=== PATIENT | male | born 1955 | race Caucasian/White ===

== ENCOUNTER → 2016-06-16 | Outpatient (CLI) | payer OTHER ==
[~2016-06-16] MED LIST: ALBU17IN INH; LEVA500T PO; MECL-68 PO; PRED10PA PO; TIOT18INH INH
== END ==
LOC: M RAD 08:41
PROVIDERS: ATTEND Family Medicine
DX: R93.8 Abnormal findings on diagnostic imaging of other specified body structures (principal); Z53.9 Procedure and treatment not carried out, unspecified reason

== ENCOUNTER → 2016-07-07 | Outpatient (CLI) | payer SELFPAY ==
[~2016-07-07] MED LIST changes: +ISOVUE-370 76% 100ML VIAL (Q9967) As Ordered ONE; +SPIR1CAP INH; +[UNRECOGNIZED DRUG - REMARK]
--- NOTE | 2016-07-08 03:25 | REP ---
Clinical: Evaluate suspicious lesion. Technique: Axial contrast enhanced images from the thoracic inlet to the upper abdomen using 100 ml Isovue 370 intravenous contrast material with coronal and sagittal re-formations. Comparison: 06/09/2016. Findings: Mild emphysematous changes are suggested along with chronic plate-like scarring and fibrotic changes in the lingula which remain stable. Mild perihilar bronchiectasis is appreciated. The presumed focal area of bronchiectasis in the superior segment right lower lobe with fluid level remains unchanged and no further similar findings are identified throughout the bilateral lung moncada. No pleural effusion. No pneumothorax. No significant axillary, hilar, or mediastinal adenopathy is appreciated. Heart/pericardium and thoracic aorta as well as pulmonary vasculature appear relatively normal for age. No cardiomegaly or pericardial effusion is appreciated. Mild atherosclerotic changes noted. Musculoskeletal structures without focal osseous abnormality. Limited evaluation of the upper abdomen demonstrates stable hepatic hypodensities most compatible with small cysts as well as normal bilateral adrenal glands. Impression: Focal area of bronchiectasis in the superior segment right lower lobe with small fluid level is unchanged and currently measures approximately 2.5 by 1.3 cm maximal transverse diameter. Differential diagnosis again may less likely include neoplastic change and small chronic pulmonary cyst. Mild chronic emphysematous changes and subtle perihilar bronchiectasis is also appreciated along with chronic plate-like scarring at the lingula. No acute consolidation, further mass lesion or adenopathy. Signed by Harpreet Pollock MD 07/08/2016 03:16 A
== END ==
LOC: M RAD 12:55
PROVIDERS: ATTEND Family Medicine
DX: R93.8 Abnormal findings on diagnostic imaging of other specified body structures (principal)
CPT/HCPCS: 71260; Q9967

== ENCOUNTER 2016-07-11 21:44 | Inpatient (IN) | payer SELFPAY ==
[~2016-07-11] VITALS: Ht 172.7 cm; Wt 118.3 kg
[~2016-07-11 21:44] MED LIST changes: -ISOVUE-370 76% 100ML VIAL (Q9967) As Ordered ONE; -SPIR1CAP INH; -[UNRECOGNIZED DRUG - REMARK]
[2016-07-11] MEDS ORDERED: ALBUTEROL SULFATE 2.5 MG/0.5 ML INH NEB SOLN As Ordered ONE (23:20)
[2016-07-11] MEDS ORDERED: IPRATROPIUM 0.5MG/ALBUTEROL 2.5MG INH SOL UD 3ML (DUONEB)(J7620) As Ordered ONE (23:20)
[2016-07-11] MEDS ORDERED: methylPREDNISolone INJ 125 MG/2 ML VIAL (J2930) As Ordered ONE (23:40)
[2016-07-11 23:58] LABS: BASO # 0.2 K/mm3 (0.0-0.2); BASO % 1.9 % (0.0-1.0); EOS # 0.1 K/mm3 (0.0-0.50); EOS % 1.5 % (0.0-3.0); LARGE UNSTAINED CELL # 0.2 K/mm3 (0.0-0.4); LARGE UNSTAINED CELL % 1.9 % (0.0-4.0); LYMPH # 2.3 K/mm3 (1.5-4.5); LYMPH % 27.1 % (24.0-44.0); MEAN CORPUSCULAR HEMOGLOBIN 32.5 pg (27.0-33.0); MEAN CORPUSCULAR HGB CONC 33.4 g/dl (32.0-36.5); MEAN CORPUSCULAR VOLUME 97.4 fl (80.0-96.0); MONO # 0.4 K/mm3 (0.0-0.8); MONO % 5.6 % (0.0-5.0); NEUTROPHILS # 4.9 K/mm3 (1.8-7.7); PLATELET COUNT, AUTOMATED 175 k/mm3 (150-450); RED CELL DISTRIBUTION WIDTH 13.7 % (11.5-14.5)
[2016-07-12 00:19] LABS: ANION GAP 8 MEQ/L (8-16); BLOOD UREA NITROGEN 9 MG/DL (7-18); CALCIUM LEVEL 8.8 MG/DL (8.8-10.2); CARBON DIOXIDE LEVEL 31 MEQ/L (21-32); CHLORIDE LEVEL 101 MEQ/L (98-107); CREATININE FOR GFR 0.78 MG/DL (0.70-1.30); GLOMERULAR FILTRATION RATE > 60.0 (>49); GLUCOSE, FASTING 130 MG/DL (80-110); POTASSIUM SERUM 3.6 MEQ/L (3.5-5.1); SODIUM LEVEL 140 MEQ/L (136-145)
[2016-07-12] MEDS ORDERED: SPIR1CAP INH (02:20)
[2016-07-12] MEDS ORDERED: [UNRECOGNIZED DRUG - REMARK] (02:26)
[2016-07-12] MEDS ORDERED: ONDANSETRON 4 MG TAB (S0181) PO PRN (02:45)
[2016-07-12] MEDS ORDERED: IPRATROPIUM 0.5MG/ALBUTEROL 2.5MG INH SOL UD 3ML (DUONEB)(J7620) NEB PRN (02:45)
[2016-07-12] MEDS ORDERED: PERCOCET 5MG/325MG TAB PO PRN (02:45)
[2016-07-12] MEDS ORDERED: ONDANSETRON 4MG/2ML VIAL (J2405) IV PRN (02:45)
[2016-07-12] MEDS ORDERED: ACETAMINOPHEN TAB 650MG DOSE (2X325MG) PO PRN (02:45)
[2016-07-12] MEDS ORDERED: ZOSYN 3.375 GM VIAL (J2543) As Ordered ONE (02:54)
[2016-07-12] MEDS ORDERED: VANCOMYCIN 1000 MG/20 ML VIAL (J3370) As Ordered ONE (03:23)
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
--- NOTE | 2016-07-12 04:06 | EDDOCDS ---
Physician Documentation [facility] Name: Kevin Sánchez Age: 61 yrs Sex: Male : 1955 Arrival Date: 07/11/2016 Time: 21:44 Bed 8 Private MD: Disposition: 07/12/16 02:04 Hospitalization ordered by Cheyenne Huggins for Inpatient Admission. Preliminary diagnosis are Chronic obstructive pulmonary disease, unspecified, Hypoxemia. - Bed requested for 4 Randle. - Status is Inpatient Admission. js15 - Condition is Stable. - Problem is an acute exacerbation. - Symptoms have improved. Historical: - Allergies: Oxycodone HCl; - Home Meds: 1. Albuterol Inhl as needed - PMHx: COPD; - PSHx: steel plate in right leg; Tonsillectomy; - Social history: Smoking status: Patient uses tobacco products, light tobacco smoker. No barriers to communication noted, The patient speaks fluent Thai. - Family history: Not pertinent. - : The pt / caregiver states he / she is not on anticoagulants. Home medication list is obtained from the patient. - Exposure Risk Screening:: None identified. Vital Signs: 07/11 21:46 BP 136 / 79; Pulse 104; Resp 20; Temp 97.4(O); Pulse Ox 94% on R/A; Weight 117.93 kg / mateo 259.99 lbs (R); Height 5 ft. 8 in. (172.72 cm) (R); Pain 0/10; 23:05 Pulse 102 MON; Pulse Ox 93% ; js15 23:06 BP 131 / 62 (auto/); 23:39 BP 120 / 72 (auto/); 15 23:39 Pulse 102 MON; Pulse Ox 87% ; 15 23:50 Pulse 100 MON; Pulse Ox 90% ; 15 23:51 BP 126 / 72 (auto/); 15 07/12 00:05 Pulse 94 MON; Pulse Ox 94% ; 15 00:06 BP 135 / 78 (auto/); 15 00:20 Pulse 94 MON; Pulse Ox 93% ; 15 00:21 BP 131 / 72 (auto/); 15 00:35 Pulse 90 MON; Pulse Ox 93% ; js15 00:36 BP 144 / 91 (auto/); 15 00:51 BP 143 / 70 (auto/); js15 00:51 Pulse 96 MON; Pulse Ox 92% ; js15 01:51 BP 128 / 74 (auto/); js15 01:51 Pulse 94 MON; Pulse Ox 91% ; js15 02:06 BP 134 / 70 (auto/); js15 02:07 Pulse 92 MON; Pulse Ox 90% ; js15 02:21 Pulse 92 MON; Pulse Ox 94% ; js15 02:21 BP 126 / 73 (auto/); js15 02:35 Pulse 98 MON; Pulse Ox 91% ; js15 02:36 BP 127 / 72 (auto/); js15 02:50 Pulse 104 MON; Pulse Ox 90% ; js15 02:51 BP 126 / 70 (auto/); 15 03:07 BP 116 / 66; Pulse 100 MON; Resp 20; Temp 98.4(TE); Pulse Ox 90% on 3 lpm NC; Pain 0/10;[facility] 07/11 21:46 Body Mass Index 39.53 (117.93 kg, 172.72 cm) mateo MDM: 07/11 23:12 Solu-MEDROL 125 mg IVP once ordered. ke 23:12 -Blood Culture (Adults Only), peripheral from different site, or from device/port/PICC ke etc. if present ordered. 23:12 Supervisor Calibration/Pulse Ox/q 15 min VS ordered. ke 23:12 IV Saline Lock ordered. ke 23:12 Oxygen at 4L/Min NC or Home dosage ordered. ke 23:12 Rhythm Strip to chart ordered. ke 23:12 Albuterol 5 mg Nebulizer once ordered. ke 23:12 Albuterol-Ipratropium 3 ml Inhalation once ordered. ke 23:12 Call Respiratory ordered. ke 23:12 Obtain sample by nasopharyngeal swab ordered. ke 23:13 Call Respiratory complete. ar3 23:13 B-Type Natiuretic Peptide Ordered. EDMS 23:13 Basic Metabolic Profile Ordered. EDMS 23:13 CBC with Diff Ordered. EDMS 23:13 -Influenza A&B Rapid Antigen - Nose Ordered. EDMS 23:13 ECG WITH READING ER PHYS+CARDIAG ordered. EDMS 23:14 Chest, 2 View (pa\E\lat) Ordered. EDMS 23:19 -Blood Culture (Adults Only), peripheral from different site, or from device/port/PICC ar3 etc. if present complete. 23:21 BLOOD CULTURES Ordered. EDMS 07/12 00:23 Financial registration complete. [facility] 01:05 Basic Metabolic Profile Reviewed. mm11 01:05 CBC with Diff Reviewed. mm11 01:05 B-Type Natiuretic Peptide Reviewed. mm11 01:05 -Influenza A&B Rapid Antigen - Nose Reviewed. mm11 01:28 [facility] Payment Agreement was scanned into Ent[employer] and attached to record. [facility] 01:55 BED REQUEST+ADM ordered. EDMS 01:55 Piperacillin-Tazobactam 3.375 grams IVPB once over 30 mins; dilute in 50mL of NS or D5W mm11 ordered. 01:55 vancomycin (loading dose for pt. wt. >= 80kg) 2000 mg IVPB once ordered. mm11 01:56 Albuterol-Ipratropium 1 neb Nebulizer every 20 minutes x3 ordered. mm11 01:56 Call Respiratory ordered. mm11 02:09 Call Respiratory complete. js15 02:36 SPUTUM CULTURE AND GRAM STAIN Ordered. EDMS 02:38 Admission / Observation Status ordered. EDMS 02:39 REGULAR DIET ordered. EDMS Administered Medications: 07/11 23:30 Drug: Albuterol 5 mg [albuterol sulfate 2.5 mg/0.5 mL solution for nebulization (1 mL)] rs5 Route: Nebulizer; 23:30 Drug: Albuterol-Ipratropium 3 ml [ipratropium-albuterol 0.5 mg-3 mg(2.5 mg base)/3 mL rs5 nebulization soln (3 mL)] Route: Inhalation; 23:49 Drug: Solu-MEDROL 125 mg [Solu-Medrol 500 mg intravenous solution (125 mg)] Route: IVP; js15 Site: right antecubital; 07/12 02:12 Drug: Albuterol-Ipratropium 1 neb [ipratropium-albuterol 0.5 mg-3 mg(2.5 mg base)/3 mL rs5 nebulization soln (1 neb)] Route: Nebulizer; 02:19 Drug: Albuterol-Ipratropium 1 neb [ipratropium-albuterol 0.5 mg-3 mg(2.5 mg base)/3 mL rs5 nebulization soln (1 neb)] Route: Nebulizer; 02:20 Drug: Albuterol-Ipratropium 1 neb [ipratropium-albuterol 0.5 mg-3 mg(2.5 mg base)/3 mL rs5 nebulization soln (1 neb)] Route: Nebulizer; 03:06 Drug: Piperacillin-Tazobactam 3.375 grams [piperacillin-tazobactam 3.375 gram js15 intravenous solution] Route: IVPB; Infused Over: 30 mins; Site: right antecubital; 03:36 Follow up: IV Status: Completed infusion; IV Intake: 50ml js15 03:38 Drug: vancomycin (loading dose for pt. wt. >= 80kg) 2000 mg [vancomycin 1,000 mg js15 intravenous injection] Route: IVPB; Site: right antecubital; 04:02 Follow up: IV Status: Infusion continued upon admit js15 Signatures: Dispatcher [employer] EDMS Elisabet Finch RN RN daq Guillermo Jolley, FOOD COUNTER ATTENDANT FOOD COUNTER ATTENDANT Matti Canales, DO mm11 Jasmin Wiseman RN RN rs3 Gabbie Mueller, WASHERY ENGINEER WASHERY ENGINEER ar3 Magda Villasenor [facility] Verenice Way RN RN js15 Frank John RT rs5 The chart was reviewed and I authenticate all verbal orders and agree with the evaluation and treatment provided.Attachments: 01:28 [facility] Payment Agreement [facility] MTDD
--- NOTE | 2016-07-12 04:06 | EDDOCDS ---
Nurse's Notes [facility] Name: Kevin Sánchez Age: 61 yrs Sex: Male : 1955 Arrival Date: 07/11/2016 Time: 21:44 Bed 8 Private MD: Diagnosis: Chronic obstructive pulmonary disease, unspecified;Hypoxemia Presentation: 07/11 21:59 Presenting complaint: Patient states: difficulty breathing today. was not improved with rs3 neb treatment and inhalers. was recently admitted for pneumonia. had chest CT done on Tuesday as outpatient. weakness/headache feeling strange today. Adult Sepsis Screening: The patient does not have new or worsening altered mentation. Patient's respiratory rate is less than 22. Systolic blood pressure is greater than 100. Patient has a qSOFA score of 0- Negative Sepsis Screen. Suicide/Homicide risk assessment- the patient denies having any suicidal and/or homicidal ideations and does not present with any other emotional, behavioral or mental health complaints. Status: Patient is not a ancillary services manager or dependent. Transition of care: patient was not received from another setting of care. 21:59 Acuity: MIREYA Level 3 rs3 21:59 Method Of Arrival: Walkin/Carried/Asstd rs3 Triage Assessment: 22:06 General: Appears in no apparent distress. Pain: Denies pain. Pt Declines HIV testing. rs3 Respiratory: Onset: The symptoms/episode began/occurred gradually. Historical: - Allergies: Oxycodone HCl; - Home Meds: 1. Albuterol Inhl as needed - PMHx: COPD; - PSHx: steel plate in right leg; Tonsillectomy; - Social history: Smoking status: Patient uses tobacco products, light tobacco smoker. No barriers to communication noted, The patient speaks fluent Taiwanese. - Family history: Not pertinent. - : The pt / caregiver states he / she is not on anticoagulants. Home medication list is obtained from the patient. - Exposure Risk Screening:: None identified. Screenin:00 Screening information is obtained from the patient. Fall risk: No risks identified. js15 Assistance ADL's: requires no assistance with activities of daily living. Abuse/DV Screen: The patient / caregiver reports he/she is: not in a situation that causes fear, pain or injury. Nutritional screening: No deficits noted. Advance Directives: There is no active DNR order. home support is adequate. Assessment: 23:00 General: Appears in no apparent distress, comfortable, Behavior is appropriate for age, js15 cooperative. Pain: Denies pain. Neurological: Level of Consciousness is awake, alert, obeys commands, Oriented to person, place, time. Cardiovascular: Capillary refill < 3 seconds Heart tones S1 S2 present Rhythm is sinus tachycardia. Cardiovascular: Chest pain is denied. Respiratory: Airway is patent Respiratory effort is even, unlabored, Respiratory pattern is regular, symmetrical, Breath sounds with wheezes bilaterally. Derm: Skin is pink, warm & dry. 07/12 00:00 Reassessment: Patient appears in no apparent distress at this time. Pt resting on js15 stretcher, respirations even and unlabored; skin pink, warm, dry. 00:57 Reassessment: Patient appears in no apparent distress at this time. Pt resting on js15 stretcher with eyes closed, appears to be sleeping; skin pink, warm, dry; respirations even and unlabored. 02:00 General: Appears to be sleeping. Cardiovascular: Rhythm is regular. Respiratory: Airway js15 is patent Respiratory effort is even, unlabored, Respiratory pattern is regular, symmetrical. Derm: Skin is pink, warm & dry. 03:14 Reassessment: Patient appears in no apparent distress at this time. Patient states js15 feeling better. Patient states symptoms have improved. Pt sitting up on stretcher, watching tv; denies pain; respirations even and unlabored; skin pink, warm, dry. Vital Signs: 07/11 21:46 BP 136 / 79; Pulse 104; Resp 20; Temp 97.4(O); Pulse Ox 94% on R/A; Weight 117.93 kg mateo (R); Height 5 ft. 8 in. (172.72 cm) (R); Pain 0/10; 23:05 Pulse 102 MON; Pulse Ox 93% ; 15 23:06 BP 131 / 62 (auto/); js15 23:39 BP 120 / 72 (auto/); js15 23:39 Pulse 102 MON; Pulse Ox 87% ; js15 23:50 Pulse 100 MON; Pulse Ox 90% ; js15 23:51 BP 126 / 72 (auto/); js15 07/12 00:05 Pulse 94 MON; Pulse Ox 94% ; js15 00:06 BP 135 / 78 (auto/); js15 00:20 Pulse 94 MON; Pulse Ox 93% ; js15 00:21 BP 131 / 72 (auto/); js15 00:35 Pulse 90 MON; Pulse Ox 93% ; js15 00:36 BP 144 / 91 (auto/); js15 00:51 BP 143 / 70 (auto/); js15 00:51 Pulse 96 MON; Pulse Ox 92% ; js15 01:51 BP 128 / 74 (auto/); js15 01:51 Pulse 94 MON; Pulse Ox 91% ; js15 02:06 BP 134 / 70 (auto/); js15 02:07 Pulse 92 MON; Pulse Ox 90% ; js15 02:21 Pulse 92 MON; Pulse Ox 94% ; js15 02:21 BP 126 / 73 (auto/); js15 02:35 Pulse 98 MON; Pulse Ox 91% ; js15 02:36 BP 127 / 72 (auto/); js15 02:50 Pulse 104 MON; Pulse Ox 90% ; js15 02:51 BP 126 / 70 (auto/); js15 03:07 BP 116 / 66; Pulse 100 MON; Resp 20; Temp 98.4(TE); Pulse Ox 90% on 3 lpm NC; Pain 0/10;js15 07/11 21:46 Body Mass Index 39.53 (117.93 kg, 172.72 cm) mateo Vitals: 07/11 21:46 Log In Time: July 11, 2016 at 21:46. mateo ED Course: 21:46 Patient visited by Rossy Bello PCA. mateo 21:46 Patient moved to Waiting mateo 21:47 Patient moved to Pre RCE mateo 22:02 Triage Initiated rs3 22:12 Patient moved to Triage 2 ms18 22:37 Patient moved to 8 kmg1 22:58 [facility] ke 22:58 Patient visited by Guillermo Jolley FNP. ke 22:58 Patient visited by Guillermo Jolley FNP. ke 23:26 Patient moved to Radiology yash 23:26 Patient moved to 8 yash 23:30 Inserted saline lock: 18 gauge in right antecubital area The patient tolerated the js15 procedure well. No procedures done that require assistance. 23:35 Patient visited by Guillermo Jolley FNP. ke 23:36 -Influenza A&B Rapid Antigen - Nose Sent. js15 23:36 B-Type Natiuretic Peptide Sent. js15 23:36 Basic Metabolic Profile Sent. js15 23:36 CBC with Diff Sent. 15 23:37 BLOOD CULTURES Sent. js15 23:37 EKG done. (by ED staff). Reviewed by Guillermo ARAGON. kb5 23:38 Patient visited by Santiago Cotter PCA. kb5 23:55 Matti Leggett DO is Attending Physician. mm11 07/12 00:00 The patient / caregiver is instructed regarding the plan of care and ED course. js15 00:[address] visited [address] Verenice [address] RN. js15 01:28 [facility] Payment Agreement was scanned into [employer] and attached to record. [facility] 01:53 Patient visited by Matti Leggett DO. mm11 02:04 Cheyenne Huggins is Hospitalizing Provider. mm11 Administered Medications: 07/11 23:30 Drug: Albuterol 5 mg [albuterol sulfate 2.5 mg/0.5 mL solution for nebulization (1 mL)] rs5 Route: Nebulizer; 23:30 Drug: Albuterol-Ipratropium 3 ml [ipratropium-albuterol 0.5 mg-3 mg(2.5 mg base)/3 mL rs5 nebulization soln (3 mL)] Route: Inhalation; 23:49 Drug: Solu-MEDROL 125 mg [Solu-Medrol 500 mg intravenous solution (125 mg)] Route: IVP; js15 Site: right antecubital; 07/12 02:12 Drug: Albuterol-Ipratropium 1 neb [ipratropium-albuterol 0.5 mg-3 mg(2.5 mg base)/3 mL rs5 nebulization soln (1 neb)] Route: Nebulizer; 02:19 Drug: Albuterol-Ipratropium 1 neb [ipratropium-albuterol 0.5 mg-3 mg(2.5 mg base)/3 mL rs5 nebulization soln (1 neb)] Route: Nebulizer; 02:20 Drug: Albuterol-Ipratropium 1 neb [ipratropium-albuterol 0.5 mg-3 mg(2.5 mg base)/3 mL rs5 nebulization soln (1 neb)] Route: Nebulizer; 03:06 Drug: Piperacillin-Tazobactam 3.375 grams [piperacillin-tazobactam 3.375 gram js15 intravenous solution] Route: IVPB; Infused Over: 30 mins; Site: right antecubital; 03:36 Follow up: IV Status: Completed infusion; IV Intake: 50ml js15 03:38 Drug: vancomycin (loading dose for pt. wt. >= 80kg) 2000 mg [vancomycin 1,000 mg js15 intravenous injection] Route: IVPB; Site: right antecubital; 04:02 Follow up: IV Status: Infusion continued upon admit js15 Intake: 03:36 IV: 50.00ml; Total: 50.00ml. js15 RT: 07/11 23:28 Initial Med Neb Given as ordered. Respiratory: Respiratory effort is even, unlabored, rs5 Respiratory pattern is regular symmetrical, Breath sounds are diminished bilaterally. Breath sounds with wheezes in left posterior upper lobe and left posterior lower lobe at expiration. 23:29 Respiratory: Reports cough that is productive. rs5 23:38 Respiratory: Breath sounds are diminished bilaterally. Breath sounds with wheezes rs5 bilaterally. 07/12 02:20 Subsequent Med Neb Given as ordered Patient tolerated procedure well without adverse rs5 effect. Respiratory: Breath sounds are diminished bilaterally. Breath sounds with wheezes. Order Results: Lab Order: B-Type Natiuretic Peptide; SPEC'M 07/11/16 23:33 Test: BRAIN NATRIURETIC PEPTIDE; Value: 9.1; Range: <100; Units: PG/ML; Status: F Lab Order: Basic Metabolic Profile; SPEC'M 07/11/16 23:33 Test: GLUCOSE, FASTING; Value: 130; Range: 80-110; Abnormal: Above high normal; Units: MG/DL; Status: F Test: BLOOD UREA NITROGEN; Value: 9; Range: 7-18; Units: MG/DL; Status: F Test: CREATININE FOR GFR; Value: 0.78; Range: 0.70-1.30; Units: MG/DL; Status: F Test: GLOMERULAR FILTRATION RATE; Value: > 60.0; Range: >49; Status: F Test: SODIUM LEVEL; Value: 140; Range: 136-145; Units: MEQ/L; Status: F Test: POTASSIUM SERUM; Value: 3.6; Range: 3.5-5.1; Units: MEQ/L; Status: F Test: CHLORIDE LEVEL; Value: 101; Range: 98-107; Units: MEQ/L; Status: F Test: CARBON DIOXIDE LEVEL; Value: 31; Range: 21-32; Units: MEQ/L; Status: F Test: ANION GAP; Value: 8; Range: 8-16; Units: MEQ/L; Status: F Test: CALCIUM LEVEL; Value: 8.8; Range: 8.8-10.2; Units: MG/DL; Status: F Test Note: ; Units are mL/min/1.73 m2 Chronic Kidney Disease Staging per NKF: Stage I & II GFR >=60 Normal to Mildly Decreased Stage III GFR 30-59 Moderately Decreased Stage IV GFR 15-29 Severely Decreased Stage V GFR <15 Very Little GFR Left ESRD GFR <15 on IRONING PLEATER Lab Order: CBC with Diff; SPEC'M 07/11/16 23:33 Test: WHITE BLOOD COUNT; Value: 8.0; Range: 4.0-10.0; Units: K/mm3; Status: F Test: RED BLOOD COUNT; Value: 5.48; Range: 4.30-6.10; Units: M/mm3; Status: F Test: HEMOGLOBIN; Value: 17.8; Range: 14.0-18.0; Units: g/dl; Status: F Test: HEMATOCRIT; Value: 53.3; Range: 42.0-52.0; Abnormal: Above high normal; Units: %; Status: F Test: MEAN CORPUSCULAR VOLUME; Value: 97.4; Range: 80.0-96.0; Abnormal: Above high normal; Units: fl; Status: F Test: MEAN CORPUSCULAR HEMOGLOBIN; Value: 32.5; Range: 27.0-33.0; Units: pg; Status: F Test: MEAN CORPUSCULAR HGB CONC; Value: 33.4; Range: 32.0-36.5; Units: g/dl; Status: F Test: RED CELL DISTRIBUTION WIDTH; Value: 13.7; Range: 11.5-14.5; Units: %; Status: F Test: PLATELET COUNT, AUTOMATED; Value: 175; Range: 150-450; Units: k/mm3; Status: F Test: NEUTROPHILS %; Value: 62.0; Range: 36.0-66.0; Units: %; Status: F Test: LYMPH %; Value: 27.1; Range: 24.0-44.0; Units: %; Status: F Test: MONO %; Value: 5.6; Range: 0.0-5.0; Abnormal: Above high normal; Units: %; Status: F Test: EOS %; Value: 1.5; Range: 0.0-3.0; Units: %; Status: F Test: BASO %; Value: 1.9; Range: 0.0-1.0; Abnormal: Above high normal; Units: %; Status: F Test: LARGE UNSTAINED CELL %; Value: 1.9; Range: 0.0-4.0; Units: %; Status: F Test: NEUTROPHILS #; Value: 4.9; Range: 1.8-7.7; Units: K/mm3; Status: F Test: LYMPH #; Value: 2.3; Range: 1.5-4.5; Units: K/mm3; Status: F Test: MONO #; Value: 0.4; Range: 0.0-0.8; Units: K/mm3; Status: F Test: EOS #; Value: 0.1; Range: 0.0-0.50; Units: K/mm3; Status: F Test: BASO #; Value: 0.2; Range: 0.0-0.2; Units: K/mm3; Status: F Test: LARGE UNSTAINED CELL #; Value: 0.2; Range: 0.0-0.4; Units: K/mm3; Status: F Lab Order: -Influenza A&B Rapid Antigen - Nose; SPEC'M 07/11/16 23:33 Test: INFLUENZA A RAPID SCR by ICA; Value: INFLUENZA A RESULTS NEGATIVE; Status: F Test: INFLUENZA A RAPID SCR by ICA; Value: Comments:; Status: F Test: INFLUENZA B RAPID SCR by ICA; Value: INFLUENZA B RESULTS NEGATIVE; Status: F Test Note: ; The Influenza test is a direct rapid immunoassay for the qualitative detection of Influenza viral antigen. Cell culture (Viral Culture) testing should be considered to confirm NEGATIVE results and to assist in detecting other viruses that can provide similar clinical symptoms. Please contact the lab within 24 hours ([phone]) if confirmatory testing is desired. Outcome: 02:04 Decision to Hospitalize by Provider. mm11 04:01 Discharge Assessment: Patient awake, alert and oriented x 3. No cognitive and/or js15 functional deficits noted. Patient verbalized understanding of disposition instructions. patient administered narcotics - no. The following High Risk Discharge criteria are identified: None. Admitted to Med/Surg accompanied by tech, via stretcher, with chart. Condition: improved. No special radiology studies were completed. Property :Personal belongings accompany Pt. 04:05 Patient left the ED. js15 Signatures: Loyda Orosco, RN RN kmg1 Ellis Soto Karl, PLANT TECHNICIAN/CONTROL ROOM OPERATOR PLANT TECHNICIAN/CONTROL ROOM OPERATOR Santiago Vasques, HOTEL ASSOCIATE HOTEL ASSOCIATE kb5 Matti Leggett, DO mm11 Jasmin Wiseman,RN RN rs3 Rossy Bello, HOTEL ASSOCIATE HOTEL ASSOCIATE mateo Frank John,RT RT rs5 Betty Sánchez,RN RN ms18 Magda Villasenor Julia,RN RN js15 Corrections: (The following items were deleted from the chart) 07/11 23:29 23:23 Initial Med Neb Given as ordered rs5 rs5 MTDD
[2016-07-12 04:10] VITALS: BP 124/80
[2016-07-12 06:00] VITALS: BP 127/72
[2016-07-12] MEDS ORDERED: LevoFLOXacin 750 MG in APPROPRIATE DILUENT 1 EA IV SCH (06:00)
[2016-07-12] MEDS: IPRATROPIUM 0.5MG/ALBUTEROL 2.5MG INH SOL UD 3ML (DUONEB)(J7620) NEB SCH ×3 (08:13→20:18)
[2016-07-12] MEDS: TIOTROPIUM INHALER/CAPSULE (SPIRIVA) INH SCH (08:13)
[2016-07-12] MEDS: methylPREDNISolone INJ 125 MG/2 ML VIAL (J2930) IV SCH ×2 (08:17→16:15)
[2016-07-12] MEDS: ENOXAPARIN 40 MG/0.4 ML SYRINGE (J1650) SC SCH (08:17)
--- NOTE | 2016-07-12 11:24 | REP ---
Clinical: Acute shortness of breath. Comparison: 06/09/2016. Findings: Mediastinum and cardiac silhouette are stable and within normal limits. Chronic predominantly perihilar and bibasilar interstitial changes are again appreciated and similar to prior examination. Superimposed scattered atelectasis/infiltrates cannot be excluded. Previously noted 2.5 cm ovoid nodular density in the right mid lung zone is unchanged. No new acute area of consolidation, effusion, or pneumothorax appreciated. Skeletal structures are stable and intact. Impression: Chronic stable-appearing changes. Cannot exclude superimposed scattered atelectasis/infiltrates. Ovoid nodular density in the right mid lung zone is again identified. Signed by Harpreet Pollock MD 07/12/2016 01:25 A
[2016-07-12] MEDS: NICOTINE 14 MG/24 HR TRANSDERMAL TD SCH (12:34)
[2016-07-12 14:32] VITALS: BP 136/86
--- NOTE | 2016-07-12 20:52 | ECGEPIP ---
Stationary ECG Study [facility] - ED Test Date: 2016-07-11 Pat Name: ALEKSANDER FERRELL Department: Room: [place] [address] Gender: M Pouch Maker: [place] : 1955 Requested By: HARSH ARAGON Order Number: [id number] Reading MD: Katlin Webb Measurements Intervals [place] Rate: 100 P: 72 MT: 153 QRS: 78 QRSD: 94 T: 53 QT: 329 QTc: 424 Interpretive Statements SINUS TACHYCARDIA ABNORMAL RHYTHM ECG NSTTW ABNORMALITY INCREASED RATE 06/09/16 Electronically Signed On 07-12-2016 20:52:19 EST by Katlin Webb
[2016-07-12 22:00] VITALS: BP 145/73
[2016-07-12] MEDS ORDERED: SODIUM CHLORIDE NASAL 0.65% SPRAY BTL (OCEAN) PRN (22:00)
[2016-07-13] MEDS: methylPREDNISolone INJ 125 MG/2 ML VIAL (J2930) IV SCH ×3 (00:08→16:44)
[2016-07-13] MEDS: IPRATROPIUM 0.5MG/ALBUTEROL 2.5MG INH SOL UD 3ML (DUONEB)(J7620) NEB SCH ×3 (02:17→13:58)
[2016-07-13 06:00] VITALS: BP 150/83
[2016-07-13] MEDS ORDERED: LevoFLOXacin 500 MG in APPROPRIATE DILUENT 1 EA IV SCH (06:00)
[2016-07-13 06:35] LABS: BASO # 0.1 K/mm3 (0.0-0.2); BASO % 1.1 % (0.0-1.0); EOS % 0.2 % (0.0-3.0); LARGE UNSTAINED CELL # 0.1 K/mm3 (0.0-0.4); LARGE UNSTAINED CELL % 0.6 % (0.0-4.0); LYMPH # 0.9 K/mm3 (1.5-4.5); LYMPH % 8.9 % (24.0-44.0); MEAN CORPUSCULAR HEMOGLOBIN 32.1 pg (27.0-33.0); MEAN CORPUSCULAR HGB CONC 31.9 g/dl (32.0-36.5); MEAN CORPUSCULAR VOLUME 100.5 fl (80.0-96.0); MONO # 0.3 K/mm3 (0.0-0.8); NEUTROPHILS # 8.3 K/mm3 (1.8-7.7); NEUTROPHILS % 86.2 % (36.0-66.0); PLATELET COUNT, AUTOMATED 188 k/mm3 (150-450); RED CELL DISTRIBUTION WIDTH 14.1 % (11.5-14.5); WHITE BLOOD COUNT 9.7 K/mm3 (4.0-10.0)
[2016-07-13 08:12] LABS: ANION GAP 9 MEQ/L (8-16); BLOOD UREA NITROGEN 11 MG/DL (7-18); CALCIUM LEVEL 8.9 MG/DL (8.8-10.2); CARBON DIOXIDE LEVEL 27 MEQ/L (21-32); CHLORIDE LEVEL 104 MEQ/L (98-107); CREATININE FOR GFR 0.86 MG/DL (0.70-1.30); GLOMERULAR FILTRATION RATE > 60.0 (>49); GLUCOSE, FASTING 128 MG/DL (80-110); MAGNESIUM LEVEL 2.1 MG/DL (1.8-2.4); POTASSIUM SERUM 4.4 MEQ/L (3.5-5.1); SODIUM LEVEL 140 MEQ/L (136-145)
[2016-07-13] MEDS: TIOTROPIUM INHALER/CAPSULE (SPIRIVA) INH SCH (08:51)
[2016-07-13] MEDS: NICOTINE 14 MG/24 HR TRANSDERMAL TD SCH (08:59)
[2016-07-13] MEDS: ENOXAPARIN 40 MG/0.4 ML SYRINGE (J1650) SC SCH (09:00)
[2016-07-13 10:00] VITALS: BP 136/63
[2016-07-13 13:00] VITALS: BP 139/86
[2016-07-13 14:00] VITALS: BP 147/74
[2016-07-13] MEDS ORDERED: DOXY100C PO (14:40)
[2016-07-13] MEDS ORDERED: PRED10TA PO (14:40)
--- NOTE | 2016-07-13 16:20 | DSES ---
DATE OF ADMISSION: 07/12/2016 DATE OF DISCHARGE: 07/13/2016 No specialists involved in his care. No complications during his stay. No procedures performed during his stay. DISCHARGE DIAGNOSES: 1. Chronic obstructive pulmonary disease (COPD) exacerbation. 2. Suspected obstructive sleep apnea (GEORGETTE). 3. Abnormal CT chest which needs followup. 4. Vertigo. SUMMARY OF HIS PRESENTATION: This is a 61-year-old who was feeling increasingly. In the emergency room, he was found to be hypoxic. He had been treated a month ago for COPD exacerbation and focal bronchiectasis in the right lower lobe which was thought possibly to represent an endobronchial neoplasm or mucoid material. The patient required outpatient pulmonary followup and controller medication which he has been unable to afford or pursue. He is in a similar situation at this point, although he is planning to return to [place] to pursue followup. He was admitted to the hospitalist service, was treated empirically with antibiotics and steroids which caused him to have rapid improvement. On the day of discharge, he is feeling well. He is breathing easily on room air at 92%, afebrile, tolerating a diet, and ambulating without difficulty. Breathing is symmetrical and rested. Increased upper airway sounds. No wheezes, rales, or rhonchi. Reasonable aeration. Heart is in a regular rate and rhythm. Abdomen is soft, doughy, nontender. LABORATORY DATA: White cell count is 9.7, hemoglobin 17.3. Creatinine is 0.86. DISCHARGE INSTRUCTIONS: Include the followin. Followup with your primary care provider upon return to [place]. 2. Activity and diet as tolerated. DISCHARGE MEDICATIONS: He was given a prescription for: - doxycycline 100 mg by mouth twice a day #14 - prednisone tapering dose as written Continue his home albuterol which he does have as needed for shortness of breath. He is not taking Spiriva as he has been unable to afford it and is thought to be unable to afford inhaled corticosteroids as well.
--- NOTE | 2016-07-14 05:06 | EDDOCDS ---
Physician Documentation [facility] Name: Kevin Sánchez Age: 61 yrs Sex: Male : 1955 Arrival Date: 07/11/2016 Time: 21:44 Bed 8 Private MD: Disposition: 07/12/16 02:04 Hospitalization ordered by Cheyenne Huggins for Inpatient Admission. Preliminary diagnosis are Chronic obstructive pulmonary disease, unspecified, Hypoxemia. - Bed requested for 4 [place]. - Status is Inpatient Admission. js15 - Condition is Stable. - Problem is an acute exacerbation. - Symptoms have improved. Historical: - Allergies: Oxycodone HCl; - Home Meds: 1. Albuterol Inhl as needed - PMHx: COPD; - PSHx: steel plate in right leg; Tonsillectomy; - Social history: Smoking status: Patient uses tobacco products, light tobacco smoker. No barriers to communication noted, The patient speaks fluent Telugu. - Family history: Not pertinent. - : The pt / caregiver states he / she is not on anticoagulants. Home medication list is obtained from the patient. - Exposure Risk Screening:: None identified. Vital Signs: 07/11 21:46 BP 136 / 79; Pulse 104; Resp 20; Temp 97.4(O); Pulse Ox 94% on R/A; Weight 117.93 kg / mateo 259.99 lbs (R); Height 5 ft. 8 in. (172.72 cm) (R); Pain 0/10; 23:05 Pulse 102 MON; Pulse Ox 93% ; js15 23:06 BP 131 / 62 (auto/); 23:39 BP 120 / 72 (auto/); 15 23:39 Pulse 102 MON; Pulse Ox 87% ; 15 23:50 Pulse 100 MON; Pulse Ox 90% ; 15 23:51 BP 126 / 72 (auto/); 15 07/12 00:05 Pulse 94 MON; Pulse Ox 94% ; 15 00:06 BP 135 / 78 (auto/); 15 00:20 Pulse 94 MON; Pulse Ox 93% ; 15 00:21 BP 131 / 72 (auto/); 15 00:35 Pulse 90 MON; Pulse Ox 93% ; js15 00:36 BP 144 / 91 (auto/); 15 00:51 BP 143 / 70 (auto/); js15 00:51 Pulse 96 MON; Pulse Ox 92% ; js15 01:51 BP 128 / 74 (auto/); js15 01:51 Pulse 94 MON; Pulse Ox 91% ; js15 02:06 BP 134 / 70 (auto/); js15 02:07 Pulse 92 MON; Pulse Ox 90% ; js15 02:21 Pulse 92 MON; Pulse Ox 94% ; js15 02:21 BP 126 / 73 (auto/); js15 02:35 Pulse 98 MON; Pulse Ox 91% ; js15 02:36 BP 127 / 72 (auto/); js15 02:50 Pulse 104 MON; Pulse Ox 90% ; js15 02:51 BP 126 / 70 (auto/); 15 03:07 BP 116 / 66; Pulse 100 MON; Resp 20; Temp 98.4(TE); Pulse Ox 90% on 3 lpm NC; Pain 0/10;[facility] 07/11 21:46 Body Mass Index 39.53 (117.93 kg, 172.72 cm) mateo MDM: 07/11 23:12 Solu-MEDROL 125 mg IVP once ordered. ke 23:12 -Blood Culture (Adults Only), peripheral from different site, or from device/port/PICC ke etc. if present ordered. 23:12 Statistical Methods Teacher/Pulse Ox/q 15 min VS ordered. ke 23:12 IV Saline Lock ordered. ke 23:12 Oxygen at 4L/Min NC or Home dosage ordered. ke 23:12 Rhythm Strip to chart ordered. ke 23:12 Albuterol 5 mg Nebulizer once ordered. ke 23:12 Albuterol-Ipratropium 3 ml Inhalation once ordered. ke 23:12 Call Respiratory ordered. ke 23:12 Obtain sample by nasopharyngeal swab ordered. ke 23:13 Call Respiratory complete. ar3 23:13 B-Type Natiuretic Peptide Ordered. EDMS 23:13 Basic Metabolic Profile Ordered. EDMS 23:13 CBC with Diff Ordered. EDMS 23:13 -Influenza A&B Rapid Antigen - Nose Ordered. EDMS 23:13 ECG WITH READING ER PHYS+CARDIAG ordered. EDMS 23:14 Chest, 2 View (pa\E\lat) Ordered. EDMS 23:19 -Blood Culture (Adults Only), peripheral from different site, or from device/port/PICC ar3 etc. if present complete. 23:21 BLOOD CULTURES Ordered. EDMS 07/12 00:23 Financial registration complete. [facility] 01:05 Basic Metabolic Profile Reviewed. mm11 01:05 CBC with Diff Reviewed. mm11 01:05 B-Type Natiuretic Peptide Reviewed. mm11 01:05 -Influenza A&B Rapid Antigen - Nose Reviewed. mm11 01:28 [facility] Payment Agreement was scanned into [employer] and attached to record. [facility] 01:55 BED REQUEST+ADM ordered. EDMS 01:55 Piperacillin-Tazobactam 3.375 grams IVPB once over 30 mins; dilute in 50mL of NS or D5W mm11 ordered. 01:55 vancomycin (loading dose for pt. wt. >= 80kg) 2000 mg IVPB once ordered. mm11 01:56 Albuterol-Ipratropium 1 neb Nebulizer every 20 minutes x3 ordered. mm11 01:56 Call Respiratory ordered. mm11 02:09 Call Respiratory complete. js15 02:36 SPUTUM CULTURE AND GRAM STAIN Ordered. EDMS 02:38 Admission / Observation Status ordered. EDMS 02:39 REGULAR DIET ordered. EDMS 12:18 T-Sheet-- Draft Copy was scanned into [employer] and attached to record. 12:19 ECG/EKG was scanned into [employer] and attached to record. gb Administered Medications: 07/11 23:30 Drug: Albuterol 5 mg [albuterol sulfate 2.5 mg/0.5 mL solution for nebulization (1 mL)] rs5 Route: Nebulizer; 23:30 Drug: Albuterol-Ipratropium 3 ml [ipratropium-albuterol 0.5 mg-3 mg(2.5 mg base)/3 mL rs5 nebulization soln (3 mL)] Route: Inhalation; 23:49 Drug: Solu-MEDROL 125 mg [Solu-Medrol 500 mg intravenous solution (125 mg)] Route: IVP; js15 Site: right antecubital; 07/12 02:12 Drug: Albuterol-Ipratropium 1 neb [ipratropium-albuterol 0.5 mg-3 mg(2.5 mg base)/3 mL rs5 nebulization soln (1 neb)] Route: Nebulizer; 02:19 Drug: Albuterol-Ipratropium 1 neb [ipratropium-albuterol 0.5 mg-3 mg(2.5 mg base)/3 mL rs5 nebulization soln (1 neb)] Route: Nebulizer; 02:20 Drug: Albuterol-Ipratropium 1 neb [ipratropium-albuterol 0.5 mg-3 mg(2.5 mg base)/3 mL rs5 nebulization soln (1 neb)] Route: Nebulizer; 03:06 Drug: Piperacillin-Tazobactam 3.375 grams [piperacillin-tazobactam 3.375 gram js15 intravenous solution] Route: IVPB; Infused Over: 30 mins; Site: right antecubital; 03:36 Follow up: IV Status: Completed infusion; IV Intake: 50ml js15 03:38 Drug: vancomycin (loading dose for pt. wt. >= 80kg) 2000 mg [vancomycin 1,000 mg js15 intravenous injection] Route: IVPB; Site: right antecubital; 04:02 Follow up: IV Status: Infusion continued upon admit js15 Signatures: Dispatcher [employer] EDMS Elisabet Finch, RN RN daq Tri Marie, Reg Reg gb Guillermo Jolley, NEWSSTAND VENDOR NEWSSTAND VENDOR Matti Canales, DO mm11 Jasmin Wiseman,RN RN rs3 Gabbie Mueller, BRIM PLATER BRIM PLATER ar3 Magda Villasenor [facility] Verenice Way RN RN js15 Frank John RT rs5 The chart was reviewed and I authenticate all verbal orders and agree with the evaluation and treatment provided.Attachments: 01:28 [facility] Payment Agreement [facility] 12:18 T-Sheet-- Draft Copy gb 12:19 ECG/EKG gb Chart Complete MTDD
--- NOTE | 2016-07-14 05:06 | EDDOCDS ---
Physician Documentation [facility] Name: Kevin Sánchez Age: 61 yrs Sex: Male : 1955 Arrival Date: 07/11/2016 Time: 21:44 Bed 8 Private MD: Disposition: 07/12/16 02:04 Hospitalization ordered by Cheyenne Huggins for Inpatient Admission. Preliminary diagnosis are Chronic obstructive pulmonary disease, unspecified, Hypoxemia. - Bed requested for 4 [place]. - Status is Inpatient Admission. js15 - Condition is Stable. - Problem is an acute exacerbation. - Symptoms have improved. Historical: - Allergies: Oxycodone HCl; - Home Meds: 1. Albuterol Inhl as needed - PMHx: COPD; - PSHx: steel plate in right leg; Tonsillectomy; - Social history: Smoking status: Patient uses tobacco products, light tobacco smoker. No barriers to communication noted, The patient speaks fluent Yi. - Family history: Not pertinent. - : The pt / caregiver states he / she is not on anticoagulants. Home medication list is obtained from the patient. - Exposure Risk Screening:: None identified. Vital Signs: 07/11 21:46 BP 136 / 79; Pulse 104; Resp 20; Temp 97.4(O); Pulse Ox 94% on R/A; Weight 117.93 kg / mateo 259.99 lbs (R); Height 5 ft. 8 in. (172.72 cm) (R); Pain 0/10; 23:05 Pulse 102 MON; Pulse Ox 93% ; js15 23:06 BP 131 / 62 (auto/); 23:39 BP 120 / 72 (auto/); 15 23:39 Pulse 102 MON; Pulse Ox 87% ; 15 23:50 Pulse 100 MON; Pulse Ox 90% ; 15 23:51 BP 126 / 72 (auto/); 15 07/12 00:05 Pulse 94 MON; Pulse Ox 94% ; 15 00:06 BP 135 / 78 (auto/); 15 00:20 Pulse 94 MON; Pulse Ox 93% ; 15 00:21 BP 131 / 72 (auto/); 15 00:35 Pulse 90 MON; Pulse Ox 93% ; js15 00:36 BP 144 / 91 (auto/); 15 00:51 BP 143 / 70 (auto/); js15 00:51 Pulse 96 MON; Pulse Ox 92% ; js15 01:51 BP 128 / 74 (auto/); js15 01:51 Pulse 94 MON; Pulse Ox 91% ; js15 02:06 BP 134 / 70 (auto/); js15 02:07 Pulse 92 MON; Pulse Ox 90% ; js15 02:21 Pulse 92 MON; Pulse Ox 94% ; js15 02:21 BP 126 / 73 (auto/); js15 02:35 Pulse 98 MON; Pulse Ox 91% ; js15 02:36 BP 127 / 72 (auto/); js15 02:50 Pulse 104 MON; Pulse Ox 90% ; js15 02:51 BP 126 / 70 (auto/); 15 03:07 BP 116 / 66; Pulse 100 MON; Resp 20; Temp 98.4(TE); Pulse Ox 90% on 3 lpm NC; Pain 0/10;[facility] 07/11 21:46 Body Mass Index 39.53 (117.93 kg, 172.72 cm) mateo MDM: 07/11 23:12 Solu-MEDROL 125 mg IVP once ordered. ke 23:12 -Blood Culture (Adults Only), peripheral from different site, or from device/port/PICC ke etc. if present ordered. 23:12 Process Engineering Manager/Pulse Ox/q 15 min VS ordered. ke 23:12 IV Saline Lock ordered. ke 23:12 Oxygen at 4L/Min NC or Home dosage ordered. ke 23:12 Rhythm Strip to chart ordered. ke 23:12 Albuterol 5 mg Nebulizer once ordered. ke 23:12 Albuterol-Ipratropium 3 ml Inhalation once ordered. ke 23:12 Call Respiratory ordered. ke 23:12 Obtain sample by nasopharyngeal swab ordered. ke 23:13 Call Respiratory complete. ar3 23:13 B-Type Natiuretic Peptide Ordered. EDMS 23:13 Basic Metabolic Profile Ordered. EDMS 23:13 CBC with Diff Ordered. EDMS 23:13 -Influenza A&B Rapid Antigen - Nose Ordered. EDMS 23:13 ECG WITH READING ER PHYS+CARDIAG ordered. EDMS 23:14 Chest, 2 View (pa\E\lat) Ordered. EDMS 23:19 -Blood Culture (Adults Only), peripheral from different site, or from device/port/PICC ar3 etc. if present complete. 23:21 BLOOD CULTURES Ordered. EDMS 07/12 00:23 Financial registration complete. [facility] 01:05 Basic Metabolic Profile Reviewed. mm11 01:05 CBC with Diff Reviewed. mm11 01:05 B-Type Natiuretic Peptide Reviewed. mm11 01:05 -Influenza A&B Rapid Antigen - Nose Reviewed. mm11 01:28 [facility] Payment Agreement was scanned into [employer] and attached to record. [facility] 01:55 BED REQUEST+ADM ordered. EDMS 01:55 Piperacillin-Tazobactam 3.375 grams IVPB once over 30 mins; dilute in 50mL of NS or D5W mm11 ordered. 01:55 vancomycin (loading dose for pt. wt. >= 80kg) 2000 mg IVPB once ordered. mm11 01:56 Albuterol-Ipratropium 1 neb Nebulizer every 20 minutes x3 ordered. mm11 01:56 Call Respiratory ordered. mm11 02:09 Call Respiratory complete. js15 02:36 SPUTUM CULTURE AND GRAM STAIN Ordered. EDMS 02:38 Admission / Observation Status ordered. EDMS 02:39 REGULAR DIET ordered. EDMS 12:18 T-Sheet-- Draft Copy was scanned into [employer] and attached to record. 12:19 ECG/EKG was scanned into [employer] and attached to record. gb Administered Medications: 07/11 23:30 Drug: Albuterol 5 mg [albuterol sulfate 2.5 mg/0.5 mL solution for nebulization (1 mL)] rs5 Route: Nebulizer; 23:30 Drug: Albuterol-Ipratropium 3 ml [ipratropium-albuterol 0.5 mg-3 mg(2.5 mg base)/3 mL rs5 nebulization soln (3 mL)] Route: Inhalation; 23:49 Drug: Solu-MEDROL 125 mg [Solu-Medrol 500 mg intravenous solution (125 mg)] Route: IVP; js15 Site: right antecubital; 07/12 02:12 Drug: Albuterol-Ipratropium 1 neb [ipratropium-albuterol 0.5 mg-3 mg(2.5 mg base)/3 mL rs5 nebulization soln (1 neb)] Route: Nebulizer; 02:19 Drug: Albuterol-Ipratropium 1 neb [ipratropium-albuterol 0.5 mg-3 mg(2.5 mg base)/3 mL rs5 nebulization soln (1 neb)] Route: Nebulizer; 02:20 Drug: Albuterol-Ipratropium 1 neb [ipratropium-albuterol 0.5 mg-3 mg(2.5 mg base)/3 mL rs5 nebulization soln (1 neb)] Route: Nebulizer; 03:06 Drug: Piperacillin-Tazobactam 3.375 grams [piperacillin-tazobactam 3.375 gram js15 intravenous solution] Route: IVPB; Infused Over: 30 mins; Site: right antecubital; 03:36 Follow up: IV Status: Completed infusion; IV Intake: 50ml js15 03:38 Drug: vancomycin (loading dose for pt. wt. >= 80kg) 2000 mg [vancomycin 1,000 mg js15 intravenous injection] Route: IVPB; Site: right antecubital; 04:02 Follow up: IV Status: Infusion continued upon admit js15 Signatures: Dispatcher [employer] EDMS Elisabet Finch, RN RN daq Tri Marie, Reg Reg gb Guillermo Jolley, SUPERVISOR VARNISH SUPERVISOR VARNISH Matti Canales, DO mm11 Jasmin Wiesman,RN RN rs3 Gabbie Mueller, AIR COMPRESSOR ENGINEER AIR COMPRESSOR ENGINEER ar3 Magda Villasenor [facility] Verenice Way RN RN js15 Frank John RT rs5 The chart was reviewed and I authenticate all verbal orders and agree with the evaluation and treatment provided.Attachments: 01:28 [facility] Payment Agreement [facility] 12:18 T-Sheet-- Draft Copy gb 12:19 ECG/EKG gb Chart Complete MTDD
--- NOTE | 2016-07-14 05:06 | EDDOCDS ---
Nurse's Notes [facility] Name: Kevin Sánchez Age: 61 yrs Sex: Male : 1955 Arrival Date: 07/11/2016 Time: 21:44 Bed 8 Private MD: Diagnosis: Chronic obstructive pulmonary disease, unspecified;Hypoxemia Presentation: 07/11 21:59 Presenting complaint: Patient states: difficulty breathing today. was not improved with rs3 neb treatment and inhalers. was recently admitted for pneumonia. had chest CT done on Tuesday as outpatient. weakness/headache feeling strange today. Adult Sepsis Screening: The patient does not have new or worsening altered mentation. Patient's respiratory rate is less than 22. Systolic blood pressure is greater than 100. Patient has a qSOFA score of 0- Negative Sepsis Screen. Suicide/Homicide risk assessment- the patient denies having any suicidal and/or homicidal ideations and does not present with any other emotional, behavioral or mental health complaints. Status: Patient is not a dining service worker or dependent. Transition of care: patient was not received from another setting of care. 21:59 Acuity: MIREYA Level 3 rs3 21:59 Method Of Arrival: Walkin/Carried/Asstd rs3 Triage Assessment: 22:06 General: Appears in no apparent distress. Pain: Denies pain. Pt Declines HIV testing. rs3 Respiratory: Onset: The symptoms/episode began/occurred gradually. Historical: - Allergies: Oxycodone HCl; - Home Meds: 1. Albuterol Inhl as needed - PMHx: COPD; - PSHx: steel plate in right leg; Tonsillectomy; - Social history: Smoking status: Patient uses tobacco products, light tobacco smoker. No barriers to communication noted, The patient speaks fluent Argentine. - Family history: Not pertinent. - : The pt / caregiver states he / she is not on anticoagulants. Home medication list is obtained from the patient. - Exposure Risk Screening:: None identified. Screenin:00 Screening information is obtained from the patient. Fall risk: No risks identified. js15 Assistance ADL's: requires no assistance with activities of daily living. Abuse/DV Screen: The patient / caregiver reports he/she is: not in a situation that causes fear, pain or injury. Nutritional screening: No deficits noted. Advance Directives: There is no active DNR order. home support is adequate. Assessment: 23:00 General: Appears in no apparent distress, comfortable, Behavior is appropriate for age, js15 cooperative. Pain: Denies pain. Neurological: Level of Consciousness is awake, alert, obeys commands, Oriented to person, place, time. Cardiovascular: Capillary refill < 3 seconds Heart tones S1 S2 present Rhythm is sinus tachycardia. Cardiovascular: Chest pain is denied. Respiratory: Airway is patent Respiratory effort is even, unlabored, Respiratory pattern is regular, symmetrical, Breath sounds with wheezes bilaterally. Derm: Skin is pink, warm & dry. 07/12 00:00 Reassessment: Patient appears in no apparent distress at this time. Pt resting on js15 stretcher, respirations even and unlabored; skin pink, warm, dry. 00:57 Reassessment: Patient appears in no apparent distress at this time. Pt resting on js15 stretcher with eyes closed, appears to be sleeping; skin pink, warm, dry; respirations even and unlabored. 02:00 General: Appears to be sleeping. Cardiovascular: Rhythm is regular. Respiratory: Airway js15 is patent Respiratory effort is even, unlabored, Respiratory pattern is regular, symmetrical. Derm: Skin is pink, warm & dry. 03:14 Reassessment: Patient appears in no apparent distress at this time. Patient states js15 feeling better. Patient states symptoms have improved. Pt sitting up on stretcher, watching tv; denies pain; respirations even and unlabored; skin pink, warm, dry. Vital Signs: 07/11 21:46 BP 136 / 79; Pulse 104; Resp 20; Temp 97.4(O); Pulse Ox 94% on R/A; Weight 117.93 kg mateo (R); Height 5 ft. 8 in. (172.72 cm) (R); Pain 0/10; 23:05 Pulse 102 MON; Pulse Ox 93% ; 15 23:06 BP 131 / 62 (auto/); js15 23:39 BP 120 / 72 (auto/); js15 23:39 Pulse 102 MON; Pulse Ox 87% ; js15 23:50 Pulse 100 MON; Pulse Ox 90% ; js15 23:51 BP 126 / 72 (auto/); js15 07/12 00:05 Pulse 94 MON; Pulse Ox 94% ; js15 00:06 BP 135 / 78 (auto/); js15 00:20 Pulse 94 MON; Pulse Ox 93% ; js15 00:21 BP 131 / 72 (auto/); js15 00:35 Pulse 90 MON; Pulse Ox 93% ; js15 00:36 BP 144 / 91 (auto/); js15 00:51 BP 143 / 70 (auto/); js15 00:51 Pulse 96 MON; Pulse Ox 92% ; js15 01:51 BP 128 / 74 (auto/); js15 01:51 Pulse 94 MON; Pulse Ox 91% ; js15 02:06 BP 134 / 70 (auto/); js15 02:07 Pulse 92 MON; Pulse Ox 90% ; js15 02:21 Pulse 92 MON; Pulse Ox 94% ; js15 02:21 BP 126 / 73 (auto/); js15 02:35 Pulse 98 MON; Pulse Ox 91% ; js15 02:36 BP 127 / 72 (auto/); js15 02:50 Pulse 104 MON; Pulse Ox 90% ; js15 02:51 BP 126 / 70 (auto/); js15 03:07 BP 116 / 66; Pulse 100 MON; Resp 20; Temp 98.4(TE); Pulse Ox 90% on 3 lpm NC; Pain 0/10;js15 07/11 21:46 Body Mass Index 39.53 (117.93 kg, 172.72 cm) mateo Vitals: 07/11 21:46 Log In Time: July 11, 2016 at 21:46. mateo ED Course: 21:46 Patient visited by Rossy Bello PCA. mateo 21:46 Patient moved to Waiting mateo 21:47 Patient moved to Pre RCE mateo 22:02 Triage Initiated rs3 22:12 Patient moved to Triage 2 ms18 22:37 Patient moved to 8 kmg1 22:58 [facility] ke 22:58 Patient visited by Guillermo Jolley FNP. ke 22:58 Patient visited by Guillermo Jolley FNP. ke 23:26 Patient moved to Radiology yash 23:26 Patient moved to 8 yash 23:30 Inserted saline lock: 18 gauge in right antecubital area The patient tolerated the js15 procedure well. No procedures done that require assistance. 23:35 Patient visited by Guillermo Jolley FNP. ke 23:36 -Influenza A&B Rapid Antigen - Nose Sent. js15 23:36 B-Type Natiuretic Peptide Sent. js15 23:36 Basic Metabolic Profile Sent. js15 23:36 CBC with Diff Sent. js15 23:37 BLOOD CULTURES Sent. js15 23:37 EKG done. (by ED staff). Reviewed by Guillermo ARAGON. kb5 23:38 Patient visited by Santiago Cotter PCA. kb5 23:55 Matti Leggett DO is Attending Physician. mm11 07/12 00:00 The patient / caregiver is instructed regarding the plan of care and ED course. js15 00:54 Patient visited by Verenice Way RN. js15 01:28 [facility] Payment Agreement was scanned into [employer] and attached to record. [facility] 01:53 Patient visited by Matti Leggett DO. mm11 02:04 Cheyenne Huggins is Hospitalizing Provider. mm11 12:18 T-Sheet-- Draft Copy was scanned into [employer] and attached to record. gb 12:19 ECG/EKG was scanned into [employer] and attached to record. gb Administered Medications: 07/11 23:30 Drug: Albuterol 5 mg [albuterol sulfate 2.5 mg/0.5 mL solution for nebulization (1 mL)] rs5 Route: Nebulizer; 23:30 Drug: Albuterol-Ipratropium 3 ml [ipratropium-albuterol 0.5 mg-3 mg(2.5 mg base)/3 mL rs5 nebulization soln (3 mL)] Route: Inhalation; 23:49 Drug: Solu-MEDROL 125 mg [Solu-Medrol 500 mg intravenous solution (125 mg)] Route: IVP; js15 Site: right antecubital; 07/12 02:12 Drug: Albuterol-Ipratropium 1 neb [ipratropium-albuterol 0.5 mg-3 mg(2.5 mg base)/3 mL rs5 nebulization soln (1 neb)] Route: Nebulizer; 02:19 Drug: Albuterol-Ipratropium 1 neb [ipratropium-albuterol 0.5 mg-3 mg(2.5 mg base)/3 mL rs5 nebulization soln (1 neb)] Route: Nebulizer; 02:20 Drug: Albuterol-Ipratropium 1 neb [ipratropium-albuterol 0.5 mg-3 mg(2.5 mg base)/3 mL rs5 nebulization soln (1 neb)] Route: Nebulizer; 03:06 Drug: Piperacillin-Tazobactam 3.375 grams [piperacillin-tazobactam 3.375 gram js15 intravenous solution] Route: IVPB; Infused Over: 30 mins; Site: right antecubital; 03:36 Follow up: IV Status: Completed infusion; IV Intake: 50ml js15 03:38 Drug: vancomycin (loading dose for pt. wt. >= 80kg) 2000 mg [vancomycin 1,000 mg js15 intravenous injection] Route: IVPB; Site: right antecubital; 04:02 Follow up: IV Status: Infusion continued upon admit js15 Intake: 03:36 IV: 50.00ml; Total: 50.00ml. js15 RT: 07/11 23:28 Initial Med Neb Given as ordered. Respiratory: Respiratory effort is even, unlabored, rs5 Respiratory pattern is regular symmetrical, Breath sounds are diminished bilaterally. Breath sounds with wheezes in left posterior upper lobe and left posterior lower lobe at expiration. 23:29 Respiratory: Reports cough that is productive. rs5 23:38 Respiratory: Breath sounds are diminished bilaterally. Breath sounds with wheezes rs5 bilaterally. 07/12 02:20 Subsequent Med Neb Given as ordered Patient tolerated procedure well without adverse rs5 effect. Respiratory: Breath sounds are diminished bilaterally. Breath sounds with wheezes. Order Results: Lab Order: B-Type Natiuretic Peptide; SPEC'M 07/11/16 23:33 Test: BRAIN NATRIURETIC PEPTIDE; Value: 9.1; Range: <100; Units: PG/ML; Status: F Lab Order: Basic Metabolic Profile; SPEC'M 07/11/16 23:33 Test: GLUCOSE, FASTING; Value: 130; Range: 80-110; Abnormal: Above high normal; Units: MG/DL; Status: F Test: BLOOD UREA NITROGEN; Value: 9; Range: 7-18; Units: MG/DL; Status: F Test: CREATININE FOR GFR; Value: 0.78; Range: 0.70-1.30; Units: MG/DL; Status: F Test: GLOMERULAR FILTRATION RATE; Value: > 60.0; Range: >49; Status: F Test: SODIUM LEVEL; Value: 140; Range: 136-145; Units: MEQ/L; Status: F Test: POTASSIUM SERUM; Value: 3.6; Range: 3.5-5.1; Units: MEQ/L; Status: F Test: CHLORIDE LEVEL; Value: 101; Range: 98-107; Units: MEQ/L; Status: F Test: CARBON DIOXIDE LEVEL; Value: 31; Range: 21-32; Units: MEQ/L; Status: F Test: ANION GAP; Value: 8; Range: 8-16; Units: MEQ/L; Status: F Test: CALCIUM LEVEL; Value: 8.8; Range: 8.8-10.2; Units: MG/DL; Status: F Test Note: ; Units are mL/min/1.73 m2 Chronic Kidney Disease Staging per NKF: Stage I & II GFR >=60 Normal to Mildly Decreased Stage III GFR 30-59 Moderately Decreased Stage IV GFR 15-29 Severely Decreased Stage V GFR <15 Very Little GFR Left ESRD GFR <15 on ENGINEERING FACULTY MEMBER Lab Order: CBC with Diff; SPEC'M 07/11/16 23:33 Test: WHITE BLOOD COUNT; Value: 8.0; Range: 4.0-10.0; Units: K/mm3; Status: F Test: RED BLOOD COUNT; Value: 5.48; Range: 4.30-6.10; Units: M/mm3; Status: F Test: HEMOGLOBIN; Value: 17.8; Range: 14.0-18.0; Units: g/dl; Status: F Test: HEMATOCRIT; Value: 53.3; Range: 42.0-52.0; Abnormal: Above high normal; Units: %; Status: F Test: MEAN CORPUSCULAR VOLUME; Value: 97.4; Range: 80.0-96.0; Abnormal: Above high normal; Units: fl; Status: F Test: MEAN CORPUSCULAR HEMOGLOBIN; Value: 32.5; Range: 27.0-33.0; Units: pg; Status: F Test: MEAN CORPUSCULAR HGB CONC; Value: 33.4; Range: 32.0-36.5; Units: g/dl; Status: F Test: RED CELL DISTRIBUTION WIDTH; Value: 13.7; Range: 11.5-14.5; Units: %; Status: F Test: PLATELET COUNT, AUTOMATED; Value: 175; Range: 150-450; Units: k/mm3; Status: F Test: NEUTROPHILS %; Value: 62.0; Range: 36.0-66.0; Units: %; Status: F Test: LYMPH %; Value: 27.1; Range: 24.0-44.0; Units: %; Status: F Test: MONO %; Value: 5.6; Range: 0.0-5.0; Abnormal: Above high normal; Units: %; Status: F Test: EOS %; Value: 1.5; Range: 0.0-3.0; Units: %; Status: F Test: BASO %; Value: 1.9; Range: 0.0-1.0; Abnormal: Above high normal; Units: %; Status: F Test: LARGE UNSTAINED CELL %; Value: 1.9; Range: 0.0-4.0; Units: %; Status: F Test: NEUTROPHILS #; Value: 4.9; Range: 1.8-7.7; Units: K/mm3; Status: F Test: LYMPH #; Value: 2.3; Range: 1.5-4.5; Units: K/mm3; Status: F Test: MONO #; Value: 0.4; Range: 0.0-0.8; Units: K/mm3; Status: F Test: EOS #; Value: 0.1; Range: 0.0-0.50; Units: K/mm3; Status: F Test: BASO #; Value: 0.2; Range: 0.0-0.2; Units: K/mm3; Status: F Test: LARGE UNSTAINED CELL #; Value: 0.2; Range: 0.0-0.4; Units: K/mm3; Status: F Lab Order: -Influenza A&B Rapid Antigen - Nose; SPEC'M 07/11/16 23:33 Test: INFLUENZA A RAPID SCR by ICA; Value: INFLUENZA A RESULTS NEGATIVE; Status: F Test: INFLUENZA A RAPID SCR by ICA; Value: Comments:; Status: F Test: INFLUENZA B RAPID SCR by ICA; Value: INFLUENZA B RESULTS NEGATIVE; Status: F Test Note: ; The Influenza test is a direct rapid immunoassay for the qualitative detection of Influenza viral antigen. Cell culture (Viral Culture) testing should be considered to confirm NEGATIVE results and to assist in detecting other viruses that can provide similar clinical symptoms. Please contact the lab within 24 hours ([phone]) if confirmatory testing is desired. Outcome: 02:04 Decision to Hospitalize by Provider. mm11 04:01 Discharge Assessment: Patient awake, alert and oriented x 3. No cognitive and/or js15 functional deficits noted. Patient verbalized understanding of disposition instructions. patient administered narcotics - no. The following High Risk Discharge criteria are identified: None. Admitted to Med/Surg accompanied by tech, via stretcher, with chart. Condition: improved. No special radiology studies were completed. Property :Personal belongings accompany Pt. 04:05 Patient left the ED. js15 Signatures: Loyda Orosco, RN RN kmg1 Ellis Soto yash Tri Marie, Reg Reg gb Guillermo Jolley, GRIEVANCE MANAGER GRIEVANCE MANAGER Santiago Vasques, ASSISTANT MANAGER PT ASSISTANT MANAGER PT kb5 Matti Leggett, DO DO mm11 Jasmin Wiseman,RN RN rs3 Rossy Bello, ASSISTANT MANAGER PT ASSISTANT MANAGER PT mateo Frank John,RT RT rs5 Betty Sánchez,RN RN ms18 Magda Villasenor Julia,RN RN js15 Corrections: (The following items were deleted from the chart) 07/11 23:29 23:23 Initial Med Neb Given as ordered rs5 rs5 Chart Complete MTDD
[2016-07-14] MEDS ORDERED: INFLUENZA QUADRIVALENT PF VACCINE 0.5ML SYRINGE/VIAL (90686) IM SCH (09:00)
== END 2016-07-13 18:54 | disposition home or self-care (01) | DRG 140 ==
LOC: M ED 21:44 → EEVIPCON 07-12 02:31 → M ED INP 07-12 02:31 → M MSPAV 07-12 04:08
PROVIDERS: ADMIT Hospitalist; ATTEND Internal Medicine
DX: J44.1 Chronic obstructive pulmonary disease with (acute) exacerbation (principal); G47.33 Obstructive sleep apnea (adult) (pediatric)